=== PATIENT | female | born 1940 | race Caucasian/White ===

== ENCOUNTER 2020-07-18 12:31 | Outpatient (CLI) | payer MEDICARE, OTHER | END 2020-07-18 12:32 | disposition home or self-care (01) | LOC: COV 12:31 | PROVIDERS: ATTEND Family Medicine | DX: Z20.828 Contact with and (suspected) exposure to other viral communicable diseases (principal) ==

== ENCOUNTER 2020-07-25 16:09 | Outpatient (CLI) | payer MEDICARE, OTHER | END 2020-07-25 16:10 | disposition home or self-care (01) | LOC: COV 16:09 | PROVIDERS: ATTEND Family Medicine | DX: Z20.828 Contact with and (suspected) exposure to other viral communicable diseases (principal) ==

== ENCOUNTER 2023-06-28 08:00 | Outpatient (CLI) | payer MEDICARE, OTHER | END 2023-06-28 23:59 | disposition home or self-care (01) | LOC: LAB.S 08:00 | PROVIDERS: ATTEND Physician Assistant | DX: H00.013 Hordeolum externum right eye, unspecified eyelid (principal) | CPT/HCPCS: 87070; 87205 ==